=== PATIENT | female | born 1955 | race African-American/Black ===

== ENCOUNTER 2018-03-07 07:55 | Inpatient (IN) ==
[2018-03-07] MEDS ORDERED: MAGNESIUM SULF RIDER 4 GM in PREMIX 1 EACH IV PRN (08:35)
[2018-03-07] MEDS ORDERED: ONDANSETRON 4 MG/2 ML VIAL IV PRN (08:35)
[2018-03-07] MEDS ORDERED: ACETAMINOPHEN 325 MG TABLET PO PRN (08:35)
[2018-03-07] MEDS ORDERED: DOCUSATE SODIUM 100 MG CAPSULE PO PRN (08:35)
[2018-03-07] MEDS ORDERED: ZALEPLON 5 MG CAPSULE PO PRN (08:35)
[2018-03-07] MEDS ORDERED: MAGNESIUM SULF RIDER 2 GM in PREMIX 1 EACH IV PRN ×2 (08:35→09:27)
[2018-03-07] MEDS ORDERED: PHYTONADIONE 5 MG/5 ML ORAL.SYR PO STA (08:39)
[2018-03-07] MEDS ORDERED: ENOXAPARIN 40 MG/0.4 ML SYRINGE SUBCUT SCH (09:00)
[2018-03-07] MEDS ORDERED: SODIUM CHLORIDE 0.45% 1,000 ML IV SCH (09:00)
[2018-03-07] MEDS ORDERED: DIAZEPAM 5 MG TABLET PO ONE (09:27)
[2018-03-07] MEDS ORDERED: diphenhydrAMINE CAP 25 MG CAPSULE PO ONE (09:27)
[2018-03-07] MEDS ORDERED: ASPIRIN 325 MG TABLET PO ONE (09:27)
[2018-03-07] MEDS ORDERED: POTASSIUM CHLORIDE RIDER 10 MEQ in PREMIX 1 EACH IV PRN (09:27)
[2018-03-07 10:37] LABS: Basophils # 0.1 10*3/uL (0.0-0.2); Basophils % 0.5 % (0.0-0.8); Eosinophils # 0.1 10*3/uL (0.0-0.87); Eosinophils % 0.5 % (0.00-10.9); Hematocrit 32.1 VOL% (35.7-47.0); Hemoglobin 10.5 GM/DL (12.0-16.0); Immature Granulocytes % 0.6 %; Immature Granulocytes Absolute 0.11 #; Lymphocytes # 1.9 10*3/uL (1.4-4.0); Lymphocytes % 9.7 % (21.3-54.2); Mean Corpuscular HGB Conc 32.7 GM/DL (32-36); Mean Corpuscular Hemoglobin 30 PG (27-34); Mean Corpuscular Volume 92.2 FL (87-102); Mean Platelet Volume 10.6 FL (9.6-12.0); Monocytes # 1.2 10*3/uL (0.11-0.8); Monocytes % 5.8 % (1.7-12.7); Neutrophils # 16.3 10*3/uL (1.4-7.4); Neutrophils % 82.9 % (38.7-73.9); Platelet Count 331 T/CUMM (130-400); Red Blood Count 3.48 MC/CUMM (3.8-5.5); Red Cell Distribution Width 13.5 % (9.3-17.3); White Blood Count 19.7 T/CUMM (4-12)
[2018-03-07 10:48] LABS: INR 3.1
[2018-03-07 10:51] LABS: PT Patient Result 31.4 SECS
[2018-03-07 11:07] LABS: Albumin 3.2 G/DL (3.4-5.0); Bilirubin,Total 0.5 MG/DL (0.2-1.0); Calcium 9.6 MG/DL (8.5-10.1); Osmolality,Calculated 287.1 MOS/KG (273-304); Potassium 4.9 MMOL/L (3.5-5.1); Total Protein 7.7 G/DL (6.4-8.3)
[2018-03-07] MEDS ORDERED: CLOPIDOGREL 300 MG TABLET PO STA (14:12)
[2018-03-07] MEDS ORDERED: VANCOMYCIN 1,000 MG VIAL ONE (14:15)
[2018-03-07] MEDS ORDERED: CLOPIDOGREL 300 MG TABLET ONE (14:18)
[2018-03-07] MEDS ORDERED: VANCOMYCIN INJ 1,000 MG in SODIUM CHLORIDE 0.9% 250 ML IV ONE (14:30)
[2018-03-07 14:50] LABS: INR 2.7
[2018-03-07 14:55] LABS: PT Patient Result 27.6 SECS
[2018-03-07] MEDS ORDERED: traMADol 50 MG TABLET PO PRN (15:12)
[2018-03-07] MEDS ORDERED: PHYTONADIONE 5 MG/5 ML ORAL.SYR PO ONE (15:16)
[2018-03-07 15:33] LABS: Basophils # 0.1 10*3/uL (0.0-0.2); Basophils % 0.6 % (0.0-0.8); Eosinophils # 0.2 10*3/uL (0.0-0.87); Eosinophils % 0.8 % (0.00-10.9); Hematocrit 30.2 VOL% (35.7-47.0); Hemoglobin 10.1 GM/DL (12.0-16.0); Immature Granulocytes % 0.6 %; Immature Granulocytes Absolute 0.12 #; Lymphocytes # 2.7 10*3/uL (1.4-4.0); Lymphocytes % 14.1 % (21.3-54.2); Mean Corpuscular HGB Conc 33.4 GM/DL (32-36); Mean Corpuscular Hemoglobin 31 PG (27-34); Mean Corpuscular Volume 91.8 FL (87-102); Mean Platelet Volume 11.2 FL (9.6-12.0); Monocytes # 1.2 10*3/uL (0.11-0.8); Monocytes % 6.5 % (1.7-12.7); Neutrophils # 14.5 10*3/uL (1.4-7.4); Neutrophils % 77.4 % (38.7-73.9); Platelet Count 333 T/CUMM (130-400); Red Blood Count 3.29 MC/CUMM (3.8-5.5); Red Cell Distribution Width 13.5 % (9.3-17.3); White Blood Count 18.8 T/CUMM (4-12)
[2018-03-07] MEDS: SODIUM CHLORIDE 0.45% 1,000 ML IV SCH (16:00)
[2018-03-07 16:01] LABS: Apearance,Urine Slightly Hazy (Clear); Bacteria,Urine Occasional /HPF (Few); Bilirubin,Urine Negative (Negative); Blood, Urine Small mg/dL (Negative); Glucose,Urine (UA) 150 mg/dL (Negative); Ketones,Urine Negative (Negative); Mucus,Urine Occasional /LPF (Occasional); Nitrite,Urine Negative (Negative); Protein,Urine 100 MG/DL; RBC,Urine 10 /HPF (0-4); Squamous Epithelial Cell,Urine Occasional /HPF (0-10); Urine Color Yellow (Yellow); Urine Specific Gravity 1.013 (1.001-1.035); WBC,Urine 1 /HPF (0-6)
[2018-03-07] MEDS ORDERED: GLUCAGON 1 MG VIAL IM PRN (16:24)
[2018-03-07] MEDS ORDERED: DEXTROSE 50% 25 GM/50 ML VIAL IV PRN (16:24)
[2018-03-07] MEDS: PANTOPRAZOLE 40 MG TABLET PO SCH (16:25)
[2018-03-07] MEDS: CLINDAMYCIN INJ 300 MG in PREMIX 1 EACH IV SCH ×2 (16:27→21:21)
[2018-03-07] MEDS ORDERED: diphenhydrAMINE CAP 25 MG CAPSULE PO PRN (16:28)
[2018-03-07] MEDS: CARVEDILOL 3.125 MG TABLET PO SCH (16:32)
[2018-03-07] MEDS: ATORVASTATIN 80 MG TABLET PO SCH (16:32)
[2018-03-07] MEDS ORDERED: Exenatide [Byetta] 10 MCG SQ SCH (21:00)
[2018-03-07] MEDS: MORPHINE 4 MG/1 ML VIAL IV PRN (21:21)
[2018-03-08] MEDS: CLINDAMYCIN INJ 300 MG in PREMIX 1 EACH IV SCH ×4 (04:07→22:20)
[2018-03-08 06:05] LABS: Hyaline Casts,Urine 8 /LPF (0-3)
[2018-03-08] MEDS ORDERED: ASPIRIN 325 MG TABLET PO ONE (06:30)
[2018-03-08] MEDS ORDERED: diphenhydrAMINE CAP 25 MG CAPSULE PO ONE (06:30)
[2018-03-08] MEDS ORDERED: DIAZEPAM 5 MG TABLET PO ONE (06:30)
[2018-03-08 06:44] LABS: INR 1.2; PT Patient Result 12.7 SECS
[2018-03-08 06:45] LABS: Basophils # 0.1 10*3/uL (0.0-0.2); Basophils % 0.7 % (0.0-0.8); Eosinophils # 0.2 10*3/uL (0.0-0.87); Eosinophils % 1.3 % (0.00-10.9); Hematocrit 27.7 VOL% (35.7-47.0); Hemoglobin 9.1 GM/DL (12.0-16.0); Immature Granulocytes % 0.8 %; Immature Granulocytes Absolute 0.14 #; Lymphocytes # 2.6 10*3/uL (1.4-4.0); Lymphocytes % 15.3 % (21.3-54.2); Mean Corpuscular HGB Conc 32.9 GM/DL (32-36); Mean Corpuscular Hemoglobin 31 PG (27-34); Mean Platelet Volume 10.7 FL (9.6-12.0); Monocytes # 1.2 10*3/uL (0.11-0.8); Neutrophils # 12.5 10*3/uL (1.4-7.4); Neutrophils % 74.9 % (38.7-73.9); Platelet Count 336 T/CUMM (130-400); Red Blood Count 2.98 MC/CUMM (3.8-5.5); Red Cell Distribution Width 13.5 % (9.3-17.3); White Blood Count 16.7 T/CUMM (4-12)
[2018-03-08] MEDS ORDERED: fentaNYL 100 MCG/2 ML VIAL ONE (06:51)
[2018-03-08] MEDS ORDERED: MIDAZOLAM 2 MG/2 ML VIAL ONE (06:51)
[2018-03-08] MEDS ORDERED: LIDOCAINE 1% 20 ML VIAL ONE (06:52)
[2018-03-08] MEDS ORDERED: VERAPAMIL 5 MG/2 ML VIAL ONE (07:06)
[2018-03-08] MEDS ORDERED: NITROGLYCERIN DRIP 50 MG/250 ML BOTTLE IV ONE (07:06)
[2018-03-08] MEDS ORDERED: ENOXAPARIN 60 MG/0.6 ML SYRINGE ONE (07:11)
[2018-03-08 07:12] LABS: Albumin 2.5 G/DL (3.4-5.0); Bilirubin,Total 0.8 MG/DL (0.2-1.0); Calcium 9.2 MG/DL (8.5-10.1); Potassium 4.6 MMOL/L (3.5-5.1); Total Protein 7.3 G/DL (6.4-8.3)
[2018-03-08] MEDS ORDERED: HEPARIN 5,000 UNIT/1 ML VIAL ONE ×2 (07:16→08:22)
[2018-03-08 08:42] LABS: Osmolality,Calculated 287.1 MOS/KG (273-304); Potassium 4.7 MMOL/L (3.5-5.1)
[2018-03-08] MEDS ORDERED: fentaNYL 100 MCG/2 ML VIAL IV PRN (09:09)
[2018-03-08] MEDS: CARVEDILOL 3.125 MG TABLET PO SCH ×2 (15:57→16:21)
[2018-03-08] MEDS: CILOSTAZOL 50 MG TABLET PO SCH ×2 (16:21→22:16)
[2018-03-08] MEDS: LOSARTAN 50 MG TABLET PO SCH (16:21)
[2018-03-08] MEDS: ASPIRIN EC 81 MG TABLET PO SCH (16:23)
[2018-03-08] MEDS: CLOPIDOGREL 75 MG TABLET PO SCH (16:23)
[2018-03-08] MEDS: ATORVASTATIN 80 MG TABLET PO SCH (16:27)
[2018-03-08] MEDS: amLODIPine 5 MG TABLET PO SCH (16:27)
[2018-03-08] MEDS: POTASSIUM CHLORIDE 10 MEQ TABLET PO SCH (16:27)
[2018-03-08] MEDS: glipiZIDE 10 MG TABLET PO SCH (16:27)
[2018-03-08] MEDS: MAGNESIUM OXIDE 400 MG TABLET PO SCH (16:27)
[2018-03-08] MEDS: PANTOPRAZOLE 40 MG TABLET PO SCH ×2 (16:28)
[2018-03-08] MEDS: VANCOMYCIN INJ 1,250 MG in SODIUM CHLORIDE 0.9% 250 ML IV SCH (16:58)
[2018-03-09] MEDS: SODIUM CHLORIDE 0.45% 1,000 ML IV SCH ×2 (03:05→04:55)
[2018-03-09] MEDS: CLINDAMYCIN INJ 300 MG in PREMIX 1 EACH IV SCH ×4 (03:27→21:44)
[2018-03-09 05:36] LABS: Basophils # 0.1 10*3/uL (0.0-0.2); Basophils % 0.5 % (0.0-0.8); Eosinophils # 0.3 10*3/uL (0.0-0.87); Hematocrit 26.7 VOL% (35.7-47.0); Hemoglobin 8.5 GM/DL (12.0-16.0); Immature Granulocytes % 0.7 %; Immature Granulocytes Absolute 0.11 #; Lymphocytes # 2.7 10*3/uL (1.4-4.0); Lymphocytes % 16.6 % (21.3-54.2); Mean Corpuscular HGB Conc 31.8 GM/DL (32-36); Mean Corpuscular Hemoglobin 30 PG (27-34); Mean Platelet Volume 10.9 FL (9.6-12.0); Monocytes # 1.1 10*3/uL (0.11-0.8); Monocytes % 6.9 % (1.7-12.7); Neutrophils # 11.7 10*3/uL (1.4-7.4); Neutrophils % 73.3 % (38.7-73.9); Platelet Count 307 T/CUMM (130-400); Red Blood Count 2.84 MC/CUMM (3.8-5.5); Red Cell Distribution Width 13.4 % (9.3-17.3)
[2018-03-09 06:05] LABS: Calcium 8.9 MG/DL (8.5-10.1); Osmolality,Calculated 283.1 MOS/KG (273-304); Potassium 4.2 MMOL/L (3.5-5.1)
[2018-03-09] MEDS: MORPHINE 4 MG/1 ML VIAL IV PRN ×3 (07:14→21:39)
[2018-03-09] MEDS ORDERED: CLINDAMYCIN INJ 900 MG in PREMIX 1 EACH IV ONE (07:59)
[2018-03-09] MEDS: CARVEDILOL 3.125 MG TABLET PO SCH ×2 (10:16→18:29)
[2018-03-09] MEDS: amLODIPine 5 MG TABLET PO SCH (10:16)
[2018-03-09] MEDS: PANTOPRAZOLE 40 MG TABLET PO SCH ×2 (10:17→18:11)
[2018-03-09] MEDS ORDERED: PROPOFOL 200 MG/20 ML VIAL IV ONE (15:56)
[2018-03-09] MEDS ORDERED: fentaNYL 100 MCG/2 ML VIAL ONE (15:56)
[2018-03-09] MEDS ORDERED: SEVOFLURANE 1 UNIT/15 MINUTE INH ONE (15:56)
[2018-03-09] MEDS ORDERED: MIDAZOLAM 2 MG/2 ML VIAL ONE (15:56)
[2018-03-09] MEDS ORDERED: ONDANSETRON 4 MG/2 ML VIAL ONE (15:56)
[2018-03-09] MEDS ORDERED: LIDOCAINE 1% 5 ML VIAL ONE (15:56)
[2018-03-09] MEDS ORDERED: PHENYLEPHRINE 1 MG/10 ML SYRINGE IV ONE (15:57)
[2018-03-09] MEDS ORDERED: DEXTROSE 50% 25 GM/50 ML VIAL IV PRN (17:32)
[2018-03-09] MEDS ORDERED: GLUCAGON 1 MG VIAL IM PRN (17:32)
[2018-03-09] MEDS: LOSARTAN 50 MG TABLET PO SCH (18:09)
[2018-03-09] MEDS: ATORVASTATIN 80 MG TABLET PO SCH (18:09)
[2018-03-09] MEDS: POTASSIUM CHLORIDE 10 MEQ TABLET PO SCH (18:09)
[2018-03-09] MEDS: ASPIRIN EC 81 MG TABLET PO SCH (18:09)
[2018-03-09] MEDS: MAGNESIUM OXIDE 400 MG TABLET PO SCH (18:11)
[2018-03-09] MEDS: CILOSTAZOL 50 MG TABLET PO SCH ×2 (18:11→21:06)
[2018-03-09] MEDS: CLOPIDOGREL 75 MG TABLET PO SCH (18:11)
[2018-03-09] MEDS: glipiZIDE 10 MG TABLET PO SCH (18:28)
[2018-03-09] MEDS: INSULIN REGULAR 100 UNIT/ML SUBCUT SCH ×2 (18:32→21:06)
[2018-03-09] MEDS: VANCOMYCIN INJ 1,250 MG in SODIUM CHLORIDE 0.9% 250 ML IV SCH (18:35)
[2018-03-09] MEDS: GABAPENTIN 100 MG CAPSULE PO SCH (21:06)
[2018-03-10] MEDS: MORPHINE 4 MG/1 ML VIAL IV PRN ×2 (02:12→10:02)
[2018-03-10] MEDS: CLINDAMYCIN INJ 300 MG in PREMIX 1 EACH IV SCH ×3 (05:45→21:19)
[2018-03-10 06:46] LABS: Basophils # 0.1 10*3/uL (0.0-0.2); Basophils % 0.3 % (0.0-0.8); Eosinophils # 0.5 10*3/uL (0.0-0.87); Eosinophils % 2.7 % (0.00-10.9); Hematocrit 26.9 VOL% (35.7-47.0); Hemoglobin 9.1 GM/DL (12.0-16.0); Immature Granulocytes % 0.6 %; Immature Granulocytes Absolute 0.11 #; Lymphocytes # 2.5 10*3/uL (1.4-4.0); Lymphocytes % 14.5 % (21.3-54.2); Mean Corpuscular HGB Conc 33.8 GM/DL (32-36); Mean Corpuscular Hemoglobin 31 PG (27-34); Mean Corpuscular Volume 91.8 FL (87-102); Mean Platelet Volume 10.6 FL (9.6-12.0); Monocytes # 1.4 10*3/uL (0.11-0.8); Monocytes % 7.9 % (1.7-12.7); Neutrophils # 12.9 10*3/uL (1.4-7.4); Platelet Count 348 T/CUMM (130-400); Red Blood Count 2.93 MC/CUMM (3.8-5.5); Red Cell Distribution Width 13.2 % (9.3-17.3); White Blood Count 17.5 T/CUMM (4-12)
[2018-03-10 07:10] LABS: Calcium 9.3 MG/DL (8.5-10.1); Osmolality,Calculated 275.5 MOS/KG (273-304); Potassium 4.3 MMOL/L (3.5-5.1)
[2018-03-10] MEDS: SODIUM CHLORIDE 0.45% 1,000 ML IV SCH ×2 (07:25→07:27)
[2018-03-10] MEDS: MAGNESIUM OXIDE 400 MG TABLET PO SCH (10:00)
[2018-03-10] MEDS: amLODIPine 5 MG TABLET PO SCH (10:00)
[2018-03-10] MEDS: CILOSTAZOL 50 MG TABLET PO SCH ×2 (10:00→21:54)
[2018-03-10] MEDS: LOSARTAN 50 MG TABLET PO SCH (10:01)
[2018-03-10] MEDS: CARVEDILOL 3.125 MG TABLET PO SCH (10:01)
[2018-03-10] MEDS: CLOPIDOGREL 75 MG TABLET PO SCH (10:01)
[2018-03-10] MEDS: PANTOPRAZOLE 40 MG TABLET PO SCH ×2 (10:01)
[2018-03-10] MEDS: ASPIRIN EC 81 MG TABLET PO SCH (10:01)
[2018-03-10] MEDS: GABAPENTIN 100 MG CAPSULE PO SCH ×3 (10:01→21:54)
[2018-03-10] MEDS: glipiZIDE 10 MG TABLET PO SCH (10:01)
[2018-03-10] MEDS: ATORVASTATIN 80 MG TABLET PO SCH (10:01)
[2018-03-10] MEDS: POTASSIUM CHLORIDE 10 MEQ TABLET PO SCH (10:01)
[2018-03-10] MEDS: INSULIN REGULAR 100 UNIT/ML SUBCUT SCH ×4 (10:02→21:19)
[2018-03-10] MEDS ORDERED: CARVEDILOL 3.125 MG TABLET PO ONE (10:21)
[2018-03-10] MEDS ORDERED: MAGNESIUM SULF RIDER 2 GM in PREMIX 1 EACH IV PRN (10:22)
[2018-03-10] MEDS ORDERED: MAGNESIUM SULF RIDER 4 GM in PREMIX 1 EACH IV PRN (10:22)
[2018-03-10] MEDS ORDERED: CARVEDILOL 6.25 MG TABLET PO SCH (10:30)
[2018-03-10] MEDS ORDERED: MORPHINE 4 MG/1 ML VIAL IV PRN (12:05)
[2018-03-10] MEDS: VANCOMYCIN INJ 1,250 MG in SODIUM CHLORIDE 0.9% 250 ML IV SCH (17:45)
[2018-03-10] MEDS: CARVEDILOL 6.25 MG TABLET PO SCH (21:54)
[2018-03-11] MEDS: SODIUM CHLORIDE 0.45% 1,000 ML IV SCH ×2 (00:28→23:05)
[2018-03-11 04:38] LABS: Basophils % 0.3 % (0.0-0.8); Eosinophils # 0.4 10*3/uL (0.0-0.87); Eosinophils % 2.3 % (0.00-10.9); Hematocrit 23.7 VOL% (35.7-47.0); Hemoglobin 7.9 GM/DL (12.0-16.0); Immature Granulocytes % 0.8 %; Immature Granulocytes Absolute 0.13 #; Lymphocytes # 1.7 10*3/uL (1.4-4.0); Mean Corpuscular HGB Conc 33.3 GM/DL (32-36); Mean Corpuscular Hemoglobin 31 PG (27-34); Mean Corpuscular Volume 92.2 FL (87-102); Mean Platelet Volume 10.3 FL (9.6-12.0); Monocytes # 1.5 10*3/uL (0.11-0.8); Monocytes % 9.7 % (1.7-12.7); Neutrophils # 11.9 10*3/uL (1.4-7.4); Neutrophils % 75.9 % (38.7-73.9); Platelet Count 320 T/CUMM (130-400); Red Blood Count 2.57 MC/CUMM (3.8-5.5); Red Cell Distribution Width 13.2 % (9.3-17.3); White Blood Count 15.7 T/CUMM (4-12)
[2018-03-11 04:51] LABS: INR 1.1; PT Patient Result 11.4 SECS
[2018-03-11 05:02] LABS: Calcium 8.6 MG/DL (8.5-10.1); Osmolality,Calculated 274.8 MOS/KG (273-304); Potassium 4.2 MMOL/L (3.5-5.1)
[2018-03-11] MEDS ORDERED: MAGNESIUM HYDROXIDE SUSP 30 ML UDCUP PO ONE (09:16)
[2018-03-11] MEDS: INSULIN REGULAR 100 UNIT/ML SUBCUT SCH ×4 (10:00→20:59)
[2018-03-11] MEDS: ATORVASTATIN 80 MG TABLET PO SCH (10:01)
[2018-03-11] MEDS: GABAPENTIN 100 MG CAPSULE PO SCH ×3 (10:01→20:59)
[2018-03-11] MEDS: POTASSIUM CHLORIDE 10 MEQ TABLET PO SCH (10:01)
[2018-03-11] MEDS: glipiZIDE 10 MG TABLET PO SCH (10:01)
[2018-03-11] MEDS: PANTOPRAZOLE 40 MG TABLET PO SCH (10:02)
[2018-03-11] MEDS: LOSARTAN 50 MG TABLET PO SCH (10:02)
[2018-03-11] MEDS: MAGNESIUM OXIDE 400 MG TABLET PO SCH (10:02)
[2018-03-11] MEDS: amLODIPine 5 MG TABLET PO SCH (10:02)
[2018-03-11] MEDS: CARVEDILOL 6.25 MG TABLET PO SCH ×2 (10:02→20:59)
[2018-03-11] MEDS: POLYETHYLENE GLYCOL POWDER 17 GM PACK PO SCH ×2 (11:52→17:35)
[2018-03-12 03:58] LABS: Basophils % 0.2 % (0.0-0.8); Eosinophils # 0.3 10*3/uL (0.0-0.87); Eosinophils % 1.7 % (0.00-10.9); Hematocrit 24.6 VOL% (35.7-47.0); Immature Granulocytes % 0.8 %; Immature Granulocytes Absolute 0.14 #; Lymphocytes # 1.2 10*3/uL (1.4-4.0); Lymphocytes % 6.8 % (21.3-54.2); Mean Corpuscular HGB Conc 32.5 GM/DL (32-36); Mean Corpuscular Hemoglobin 31 PG (27-34); Mean Corpuscular Volume 93.9 FL (87-102); Mean Platelet Volume 10.1 FL (9.6-12.0); Monocytes # 1.4 10*3/uL (0.11-0.8); Monocytes % 7.8 % (1.7-12.7); Neutrophils # 14.8 10*3/uL (1.4-7.4); Neutrophils % 82.7 % (38.7-73.9); Platelet Count 303 T/CUMM (130-400); Red Blood Count 2.62 MC/CUMM (3.8-5.5); Red Cell Distribution Width 13.2 % (9.3-17.3); White Blood Count 17.9 T/CUMM (4-12)
[2018-03-12] MEDS: PANTOPRAZOLE 40 MG TABLET PO SCH ×2 (05:07→09:15)
[2018-03-12] MEDS: MAGNESIUM HYDROXIDE SUSP 30 ML UDCUP PO PRN ×2 (05:18→15:40)
[2018-03-12] MEDS: INSULIN REGULAR 100 UNIT/ML SUBCUT SCH ×4 (09:14→21:33)
[2018-03-12] MEDS: glipiZIDE 10 MG TABLET PO SCH (09:15)
[2018-03-12] MEDS: LOSARTAN 50 MG TABLET PO SCH (09:15)
[2018-03-12] MEDS: MAGNESIUM OXIDE 400 MG TABLET PO SCH (09:15)
[2018-03-12] MEDS: GABAPENTIN 100 MG CAPSULE PO SCH ×3 (09:15→21:33)
[2018-03-12] MEDS: POLYETHYLENE GLYCOL POWDER 17 GM PACK PO SCH (09:15)
[2018-03-12] MEDS: ATORVASTATIN 80 MG TABLET PO SCH (09:15)
[2018-03-12] MEDS: POTASSIUM CHLORIDE 10 MEQ TABLET PO SCH (09:16)
[2018-03-12] MEDS: amLODIPine 5 MG TABLET PO SCH (09:16)
[2018-03-12] MEDS: CARVEDILOL 6.25 MG TABLET PO SCH ×2 (09:46→21:33)
[2018-03-13 04:12] LABS: Basophils # 0.1 10*3/uL (0.0-0.2); Basophils % 0.3 % (0.0-0.8); Eosinophils # 0.2 10*3/uL (0.0-0.87); Hematocrit 22.7 VOL% (35.7-47.0); Hemoglobin 7.3 GM/DL (12.0-16.0); Immature Granulocytes % 0.8 %; Immature Granulocytes Absolute 0.15 #; Lymphocytes # 2.3 10*3/uL (1.4-4.0); Lymphocytes % 12.8 % (21.3-54.2); Mean Corpuscular HGB Conc 32.2 GM/DL (32-36); Mean Corpuscular Hemoglobin 30 PG (27-34); Mean Corpuscular Volume 93.8 FL (87-102); Monocytes # 1.8 10*3/uL (0.11-0.8); Monocytes % 9.9 % (1.7-12.7); Neutrophils # 13.7 10*3/uL (1.4-7.4); Neutrophils % 75.2 % (38.7-73.9); Platelet Count 309 T/CUMM (130-400); Red Blood Count 2.42 MC/CUMM (3.8-5.5); Red Cell Distribution Width 13.2 % (9.3-17.3); White Blood Count 18.3 T/CUMM (4-12)
[2018-03-13] MEDS: MAGNESIUM HYDROXIDE SUSP 30 ML UDCUP PO PRN (05:38)
[2018-03-13] MEDS: INSULIN REGULAR 100 UNIT/ML SUBCUT SCH ×4 (07:59→20:57)
[2018-03-13] MEDS: POTASSIUM CHLORIDE 10 MEQ TABLET PO SCH (10:15)
[2018-03-13] MEDS: PANTOPRAZOLE 40 MG TABLET PO SCH (10:15)
[2018-03-13] MEDS: LOSARTAN 50 MG TABLET PO SCH (10:16)
[2018-03-13] MEDS: CLINDAMYCIN 300 MG CAPSULE PO SCH ×2 (10:16→21:00)
[2018-03-13] MEDS: CARVEDILOL 6.25 MG TABLET PO SCH ×2 (10:16→20:56)
[2018-03-13] MEDS: SULFAMETHOX/TRIMETHOPRIM 800-160 MG TABLET PO SCH ×2 (10:16→20:56)
[2018-03-13] MEDS: MAGNESIUM OXIDE 400 MG TABLET PO SCH (10:16)
[2018-03-13] MEDS: FERROUS SULFATE 325 MG TABLET PO SCH ×2 (10:16→20:56)
[2018-03-13] MEDS: amLODIPine 5 MG TABLET PO SCH (10:16)
[2018-03-13] MEDS: GABAPENTIN 100 MG CAPSULE PO SCH ×3 (10:16→20:56)
[2018-03-13] MEDS: ATORVASTATIN 80 MG TABLET PO SCH (10:16)
[2018-03-13] MEDS: POLYETHYLENE GLYCOL POWDER 17 GM PACK PO SCH (10:18)
[2018-03-13] MEDS: glipiZIDE 10 MG TABLET PO SCH (10:19)
[2018-03-14] MEDS: CLINDAMYCIN 300 MG CAPSULE PO SCH ×2 (03:14→09:01)
[2018-03-14 05:16] LABS: Basophils # 0.1 10*3/uL (0.0-0.2); Basophils % 0.3 % (0.0-0.8); Eosinophils # 0.3 10*3/uL (0.0-0.87); Eosinophils % 1.7 % (0.00-10.9); Hematocrit 22.5 VOL% (35.7-47.0); Hemoglobin 7.2 GM/DL (12.0-16.0); Immature Granulocytes Absolute 0.16 #; Lymphocytes # 1.9 10*3/uL (1.4-4.0); Lymphocytes % 11.5 % (21.3-54.2); Mean Corpuscular Hemoglobin 30 PG (27-34); Mean Corpuscular Volume 94.5 FL (87-102); Mean Platelet Volume 9.9 FL (9.6-12.0); Monocytes # 1.6 10*3/uL (0.11-0.8); Monocytes % 9.6 % (1.7-12.7); Neutrophils # 12.8 10*3/uL (1.4-7.4); Neutrophils % 75.9 % (38.7-73.9); Platelet Count 307 T/CUMM (130-400); Red Blood Count 2.38 MC/CUMM (3.8-5.5); Red Cell Distribution Width 13.7 % (9.3-17.3); White Blood Count 16.8 T/CUMM (4-12)
[2018-03-14 05:39] LABS: Calcium 8.5 MG/DL (8.5-10.1); Potassium 4.8 MMOL/L (3.5-5.1)
[2018-03-14] MEDS ORDERED: ASPIRIN CHEW 81 MG TABLET PO SCH (09:00)
[2018-03-14] MEDS: PANTOPRAZOLE 40 MG TABLET PO SCH (09:01)
[2018-03-14] MEDS: POTASSIUM CHLORIDE 10 MEQ TABLET PO SCH (09:01)
[2018-03-14] MEDS: glipiZIDE 10 MG TABLET PO SCH (09:01)
[2018-03-14] MEDS: MAGNESIUM OXIDE 400 MG TABLET PO SCH (09:01)
[2018-03-14] MEDS: LOSARTAN 50 MG TABLET PO SCH (09:01)
[2018-03-14] MEDS: CARVEDILOL 6.25 MG TABLET PO SCH (09:01)
[2018-03-14] MEDS: SULFAMETHOX/TRIMETHOPRIM 800-160 MG TABLET PO SCH (09:01)
[2018-03-14] MEDS: FERROUS SULFATE 325 MG TABLET PO SCH (09:01)
[2018-03-14] MEDS: ATORVASTATIN 80 MG TABLET PO SCH (09:01)
[2018-03-14] MEDS: amLODIPine 5 MG TABLET PO SCH (09:01)
[2018-03-14] MEDS: INSULIN REGULAR 100 UNIT/ML SUBCUT SCH ×2 (09:34→12:29)
[2018-03-14 11:05] VITALS: BP 116/53
[2018-03-14] MEDS: POLYETHYLENE GLYCOL POWDER 17 GM PACK PO SCH (11:57)
[2018-03-14] MEDS: GABAPENTIN 100 MG CAPSULE PO SCH ×2 (11:57→16:09)
== END 2018-03-14 16:05 | DRG 240 ==
LOC: N.CL 07:55 → N.3E 15:06
PROVIDERS: ADMIT Internal Medicine Cardiovascular Disease; ATTEND Internal Medicine Cardiovascular Disease

== ENCOUNTER 2018-03-21 10:25 | Inpatient (IN) ==
[2018-03-21] MEDS ORDERED: CLINDAMYCIN INJ 600 MG in PREMIX 1 EACH IV STA (11:21)
[2018-03-21] MEDS ORDERED: CLINDAMYCIN INJ 900 MG in PREMIX 1 EACH IV ONE (11:30)
[2018-03-21 12:00] LABS: Basophils # 0.1 10*3/uL (0.0-0.2); Basophils % 0.6 % (0.0-0.8); Eosinophils # 0.3 10*3/uL (0.0-0.87); Eosinophils % 1.4 % (0.00-10.9); Hematocrit 28.8 VOL% (35.7-47.0); Hemoglobin 9.3 GM/DL (12.0-16.0); Immature Granulocytes % 1.1 %; Immature Granulocytes Absolute 0.22 #; Lymphocytes # 2.1 10*3/uL (1.4-4.0); Lymphocytes % 10.6 % (21.3-54.2); Mean Corpuscular HGB Conc 32.3 GM/DL (32-36); Mean Corpuscular Hemoglobin 30 PG (27-34); Mean Corpuscular Volume 92.9 FL (87-102); Mean Platelet Volume 9.5 FL (9.6-12.0); Monocytes # 1.6 10*3/uL (0.11-0.8); Monocytes % 8.1 % (1.7-12.7); Neutrophils # 15.6 10*3/uL (1.4-7.4); Neutrophils % 78.2 % (38.7-73.9); Platelet Count 481 T/CUMM (130-400); Red Cell Distribution Width 14.8 % (9.3-17.3)
[2018-03-21] MEDS ORDERED: METOCLOPRAMIDE 10 MG/2 ML VIAL IV STA (12:02)
[2018-03-21] MEDS ORDERED: FAMOTIDINE 20 MG/2 ML VIAL IV STA (12:03)
[2018-03-21 12:36] LABS: Albumin 2.4 G/DL (3.4-5.0); Bilirubin,Total 0.4 MG/DL (0.2-1.0); Calcium 9.3 MG/DL (8.5-10.1); Osmolality,Calculated 278.1 MOS/KG (273-304); Total Protein 8.1 G/DL (6.4-8.3)
[2018-03-21] MEDS ORDERED: INSULIN REGULAR 100 UNIT/ML IV ONE ×2 (13:30→20:06)
[2018-03-21] MEDS ORDERED: SODIUM BICARBONATE 50 MEQ/50 ML VIAL IV STA (13:30)
[2018-03-21] MEDS ORDERED: DEXTROSE 50% 25 GM/50 ML VIAL IV STA (13:31)
[2018-03-21] MEDS ORDERED: SODIUM BICARBONATE 50 MEQ/50 ML SYRINGE IV ONE ×2 (14:07→19:58)
[2018-03-21] MEDS ORDERED: DEXTROSE 50% 25 GM/50 ML SYRINGE IV ONE (14:07)
[2018-03-21] MEDS ORDERED: CALCIUM GLUCONATE 2,000 MG in SODIUM CHLORIDE 0.9% 100 ML IV ONE (16:14)
[2018-03-21] MEDS ORDERED: SODIUM CHLORIDE 0.9% 1,000 ML IV ONE (16:14)
[2018-03-21] MEDS ORDERED: ONDANSETRON 4 MG/2 ML VIAL IV PRN (16:14)
[2018-03-21] MEDS ORDERED: PANTOPRAZOLE 40 MG TABLET PO SCH (16:14)
[2018-03-21] MEDS: ENOXAPARIN 40 MG/0.4 ML SYRINGE SUBCUT SCH (19:01)
[2018-03-21] MEDS: ASPIRIN EC 81 MG TABLET PO SCH (19:02)
[2018-03-21] MEDS: GABAPENTIN 100 MG CAPSULE PO SCH ×2 (19:02→20:15)
[2018-03-21] MEDS: ATORVASTATIN 80 MG TABLET PO SCH (19:02)
[2018-03-21] MEDS ORDERED: CALCIUM CHLORIDE 1,000 MG in SODIUM CHLORIDE 0.9% 100 ML IV ONE (19:13)
[2018-03-21] MEDS ORDERED: DEXTROSE 50% 25 GM/50 ML VIAL IV PRN (19:43)
[2018-03-21] MEDS ORDERED: GLUCAGON 1 MG VIAL IM PRN (19:43)
[2018-03-21] MEDS ORDERED: SODIUM POLYSTYRENE SULFATE 15 GM/60 ML BOTTLE PO ONE (19:58)
[2018-03-21] MEDS ORDERED: DEXTROSE 50% 25 GM/50 ML VIAL IV ONE (20:06)
[2018-03-21] MEDS: CARVEDILOL 6.25 MG TABLET PO SCH (20:15)
[2018-03-21] MEDS: FERROUS SULFATE 325 MG TABLET PO SCH (20:15)
[2018-03-21] MEDS ORDERED: EXENATIDE 10 MCG SQ SCH (21:00)
[2018-03-21] MEDS: INSULIN REGULAR 100 UNIT/ML SUBCUT SCH (21:09)
[2018-03-21] MEDS: VANCOMYCIN INJ 1,250 MG in SODIUM CHLORIDE 0.9% 500 ML IV SCH (21:45)
[2018-03-21] MEDS ORDERED: SODIUM POLYSTYRENE SULFATE 15 GM/60 ML BOTTLE PO SCH (22:00)
[2018-03-21] MEDS ORDERED: SUGAMMADEX 200 MG/2 ML VIAL IV ONE (23:28)
[2018-03-21] MEDS ORDERED: SEVOFLURANE 1 UNIT/15 MINUTE INH ONE (23:50)
[2018-03-21] MEDS ORDERED: fentaNYL 100 MCG/2 ML VIAL ONE (23:50)
[2018-03-21] MEDS ORDERED: PHENYLEPHRINE 1 MG/10 ML SYRINGE IV ONE (23:50)
[2018-03-21] MEDS ORDERED: MIDAZOLAM 2 MG/2 ML VIAL ONE (23:50)
[2018-03-21] MEDS ORDERED: ETOMIDATE 40 MG/20 ML VIAL IV ONE (23:50)
[2018-03-21] MEDS ORDERED: ROCURONIUM 100 MG/10 ML VIAL IV ONE (23:51)
[2018-03-22] MEDS: PIPERACILLIN/TAZOBACTAM 3,375 MG in SODIUM CHLORIDE 0.9% 100 ML IV SCH ×3 (02:15→17:31)
[2018-03-22] MEDS: ENOXAPARIN 40 MG/0.4 ML SYRINGE SUBCUT SCH (06:33)
[2018-03-22 06:56] LABS: Basophils # 0.1 10*3/uL (0.0-0.2); Basophils % 0.7 % (0.0-0.8); Eosinophils # 0.3 10*3/uL (0.0-0.87); Eosinophils % 1.5 % (0.00-10.9); Hematocrit 26.9 VOL% (35.7-47.0); Hemoglobin 8.5 GM/DL (12.0-16.0); Immature Granulocytes % 0.7 %; Immature Granulocytes Absolute 0.13 #; Lymphocytes # 2.3 10*3/uL (1.4-4.0); Lymphocytes % 12.8 % (21.3-54.2); Mean Corpuscular HGB Conc 31.6 GM/DL (32-36); Mean Corpuscular Hemoglobin 30 PG (27-34); Mean Corpuscular Volume 93.7 FL (87-102); Mean Platelet Volume 9.5 FL (9.6-12.0); Monocytes # 1.8 10*3/uL (0.11-0.8); Monocytes % 10.1 % (1.7-12.7); Neutrophils # 13.2 10*3/uL (1.4-7.4); Neutrophils % 74.2 % (38.7-73.9); Platelet Count 457 T/CUMM (130-400); Red Blood Count 2.87 MC/CUMM (3.8-5.5); Red Cell Distribution Width 14.6 % (9.3-17.3); White Blood Count 17.8 T/CUMM (4-12)
[2018-03-22 07:13] LABS: Calcium 9.2 MG/DL (8.5-10.1); Osmolality,Calculated 282.4 MOS/KG (273-304); Potassium 4.5 MMOL/L (3.5-5.1)
[2018-03-22] MEDS: CARVEDILOL 6.25 MG TABLET PO SCH ×2 (08:40→17:30)
[2018-03-22] MEDS: PANTOPRAZOLE 40 MG TABLET PO SCH (08:40)
[2018-03-22] MEDS ORDERED: PANTOPRAZOLE 40 MG VIAL IV ONE (08:50)
[2018-03-22] MEDS ORDERED: POTASSIUM CHLORIDE 10 MEQ TABLET PO SCH (09:00)
[2018-03-22] MEDS: INSULIN REGULAR 100 UNIT/ML SUBCUT SCH ×3 (09:28→17:31)
[2018-03-22] MEDS: ATORVASTATIN 80 MG TABLET PO SCH (10:05)
[2018-03-22] MEDS: MAGNESIUM OXIDE 400 MG TABLET PO SCH (10:05)
[2018-03-22] MEDS: FERROUS SULFATE 325 MG TABLET PO SCH ×2 (10:05→20:13)
[2018-03-22] MEDS: ASPIRIN EC 81 MG TABLET PO SCH (10:05)
[2018-03-22] MEDS: GABAPENTIN 100 MG CAPSULE PO SCH ×3 (10:06→20:13)
[2018-03-22] MEDS: amLODIPine 5 MG TABLET PO SCH (10:06)
[2018-03-22] MEDS: HYDROmorphone 2 MG/1 ML VIAL IV PRN ×3 (10:25→10:40)
[2018-03-22] MEDS ORDERED: HYDROmorphone 2 MG/1 ML VIAL ONE (10:26)
[2018-03-22] MEDS ORDERED: ONDANSETRON 4 MG/2 ML VIAL ONE ×2 (10:26→10:32)
[2018-03-22] MEDS ORDERED: SEVOFLURANE 1 UNIT/15 MINUTE INH ONE (10:31)
[2018-03-22] MEDS ORDERED: fentaNYL 100 MCG/2 ML VIAL ONE (10:31)
[2018-03-22] MEDS ORDERED: PROPOFOL 200 MG/20 ML VIAL IV ONE (10:31)
[2018-03-22] MEDS ORDERED: GLYCOPYRROLATE 0.4 MG/2 ML VIAL ONE (10:32)
[2018-03-22] MEDS ORDERED: MIDAZOLAM 2 MG/2 ML VIAL ONE (10:32)
[2018-03-22] MEDS ORDERED: PHENYLEPHRINE 10 MG/1 ML VIAL IV ONE (10:32)
[2018-03-22] MEDS ORDERED: LACTATED RINGERS 1,000 ML IV ONE (10:32)
[2018-03-22] MEDS ORDERED: MEPERIDINE 25 MG/1 ML VIAL IV PRN (10:35)
[2018-03-22] MEDS ORDERED: ONDANSETRON 4 MG/2 ML VIAL IV PRN (10:35)
[2018-03-22] MEDS: MORPHINE 4 MG/1 ML VIAL IV PRN ×2 (12:12→15:58)
[2018-03-22] MEDS: VANCOMYCIN INJ 1,250 MG in SODIUM CHLORIDE 0.9% 500 ML IV SCH (20:11)
[2018-03-23] MEDS: INSULIN REGULAR 100 UNIT/ML SUBCUT SCH ×5 (01:01→21:40)
[2018-03-23] MEDS: PIPERACILLIN/TAZOBACTAM 3,375 MG in SODIUM CHLORIDE 0.9% 100 ML IV SCH ×3 (02:23→18:25)
[2018-03-23 05:18] LABS: Basophils # 0.1 10*3/uL (0.0-0.2); Basophils % 0.4 % (0.0-0.8); Eosinophils # 0.1 10*3/uL (0.0-0.87); Eosinophils % 0.2 % (0.00-10.9); Hematocrit 22.7 VOL% (35.7-47.0); Immature Granulocytes Absolute 0.21 #; Lymphocytes # 1.7 10*3/uL (1.4-4.0); Lymphocytes % 8.1 % (21.3-54.2); Mean Corpuscular HGB Conc 30.8 GM/DL (32-36); Mean Corpuscular Hemoglobin 30 PG (27-34); Mean Corpuscular Volume 96.2 FL (87-102); Monocytes # 1.7 10*3/uL (0.11-0.8); Monocytes % 8.5 % (1.7-12.7); Neutrophils # 16.7 10*3/uL (1.4-7.4); Neutrophils % 81.8 % (38.7-73.9); Platelet Count 419 T/CUMM (130-400); Red Blood Count 2.36 MC/CUMM (3.8-5.5); Red Cell Distribution Width 14.8 % (9.3-17.3); White Blood Count 20.4 T/CUMM (4-12)
[2018-03-23 05:43] LABS: Hypochromasia Slight; Macrocytosis Slight; Platelet Estimate Increased
[2018-03-23 05:45] LABS: Calcium 8.7 MG/DL (8.5-10.1); Osmolality,Calculated 278.7 MOS/KG (273-304); Potassium 4.7 MMOL/L (3.5-5.1)
[2018-03-23] MEDS: ENOXAPARIN 40 MG/0.4 ML SYRINGE SUBCUT SCH (06:55)
[2018-03-23] MEDS: PANTOPRAZOLE 40 MG TABLET PO SCH (09:06)
[2018-03-23] MEDS: CARVEDILOL 6.25 MG TABLET PO SCH ×2 (09:06→16:30)
[2018-03-23] MEDS: ASPIRIN EC 81 MG TABLET PO SCH (09:06)
[2018-03-23] MEDS: ATORVASTATIN 80 MG TABLET PO SCH (09:06)
[2018-03-23] MEDS: FERROUS SULFATE 325 MG TABLET PO SCH ×2 (09:06→21:34)
[2018-03-23] MEDS: MORPHINE 4 MG/1 ML VIAL IV PRN ×2 (09:07→13:09)
[2018-03-23] MEDS: MAGNESIUM OXIDE 400 MG TABLET PO SCH (09:07)
[2018-03-23] MEDS: amLODIPine 5 MG TABLET PO SCH (09:07)
[2018-03-23] MEDS: GABAPENTIN 100 MG CAPSULE PO SCH ×3 (09:07→21:34)
[2018-03-23] MEDS: VANCOMYCIN INJ 1,250 MG in SODIUM CHLORIDE 0.9% 250 ML IV SCH ×2 (12:30→23:43)
[2018-03-23] MEDS: ACETAMINOPHEN 325 MG TABLET PO PRN (21:34)
[2018-03-24] MEDS: PIPERACILLIN/TAZOBACTAM 3,375 MG in SODIUM CHLORIDE 0.9% 100 ML IV SCH ×3 (02:29→17:45)
[2018-03-24] MEDS: ENOXAPARIN 40 MG/0.4 ML SYRINGE SUBCUT SCH (06:14)
[2018-03-24 06:54] LABS: Basophils # 0.1 10*3/uL (0.0-0.2); Basophils % 0.3 % (0.0-0.8); Eosinophils # 0.4 10*3/uL (0.0-0.87); Eosinophils % 2.2 % (0.00-10.9); Hematocrit 20.2 VOL% (35.7-47.0); Immature Granulocytes Absolute 0.17 #; Lymphocytes % 17.1 % (21.3-54.2); Mean Corpuscular HGB Conc 30.7 GM/DL (32-36); Mean Corpuscular Hemoglobin 30 PG (27-34); Mean Corpuscular Volume 96.7 FL (87-102); Mean Platelet Volume 9.9 FL (9.6-12.0); Monocytes # 2.2 10*3/uL (0.11-0.8); Monocytes % 12.2 % (1.7-12.7); Neutrophils # 11.9 10*3/uL (1.4-7.4); Neutrophils % 67.2 % (38.7-73.9); Platelet Count 406 T/CUMM (130-400); Red Blood Count 2.09 MC/CUMM (3.8-5.5); Red Cell Distribution Width 14.5 % (9.3-17.3); White Blood Count 17.7 T/CUMM (4-12)
[2018-03-24 07:10] LABS: Hemoglobin 6.2 GM/DL (12.0-16.0)
[2018-03-24 07:24] LABS: Calcium 8.5 MG/DL (8.5-10.1); Osmolality,Calculated 281.5 MOS/KG (273-304); Potassium 4.8 MMOL/L (3.5-5.1)
[2018-03-24] MEDS: ATORVASTATIN 80 MG TABLET PO SCH (08:38)
[2018-03-24] MEDS: PANTOPRAZOLE 40 MG TABLET PO SCH (08:38)
[2018-03-24] MEDS: MAGNESIUM OXIDE 400 MG TABLET PO SCH (08:38)
[2018-03-24] MEDS: MORPHINE 4 MG/1 ML VIAL IV PRN (08:38)
[2018-03-24] MEDS: CARVEDILOL 6.25 MG TABLET PO SCH ×2 (08:38→16:59)
[2018-03-24] MEDS: GABAPENTIN 100 MG CAPSULE PO SCH ×3 (08:38→21:24)
[2018-03-24] MEDS: ASPIRIN EC 81 MG TABLET PO SCH (08:38)
[2018-03-24] MEDS: FERROUS SULFATE 325 MG TABLET PO SCH ×2 (08:38→21:25)
[2018-03-24] MEDS: INSULIN REGULAR 100 UNIT/ML SUBCUT SCH ×4 (08:39→21:24)
[2018-03-24] MEDS: amLODIPine 5 MG TABLET PO SCH (08:39)
[2018-03-24] MEDS ORDERED: SODIUM CHLORIDE 0.9% 1,000 ML IV PRN (08:42)
[2018-03-24] MEDS: VANCOMYCIN INJ 1,250 MG in SODIUM CHLORIDE 0.9% 250 ML IV SCH ×2 (11:15→23:03)
[2018-03-24] MEDS ORDERED: SODIUM POLYSTYRENE SULFATE 15 GM/60 ML BOTTLE PO STA (14:56)
[2018-03-24] MEDS: traMADol 50 MG TABLET PO PRN (17:50)
[2018-03-25] MEDS: PIPERACILLIN/TAZOBACTAM 3,375 MG in SODIUM CHLORIDE 0.9% 100 ML IV SCH ×3 (01:25→18:11)
[2018-03-25 04:11] LABS: Basophils # 0.1 10*3/uL (0.0-0.2); Basophils % 0.7 % (0.0-0.8); Eosinophils # 0.3 10*3/uL (0.0-0.87); Eosinophils % 2.2 % (0.00-10.9); Hematocrit 25.1 VOL% (35.7-47.0); Hemoglobin 8.3 GM/DL (12.0-16.0); Immature Granulocytes % 1.1 %; Immature Granulocytes Absolute 0.16 #; Lymphocytes # 1.9 10*3/uL (1.4-4.0); Lymphocytes % 13.3 % (21.3-54.2); Mean Corpuscular HGB Conc 33.1 GM/DL (32-36); Mean Corpuscular Hemoglobin 30 PG (27-34); Mean Platelet Volume 10.1 FL (9.6-12.0); Monocytes # 1.3 10*3/uL (0.11-0.8); Monocytes % 9.1 % (1.7-12.7); Neutrophils # 10.6 10*3/uL (1.4-7.4); Neutrophils % 73.6 % (38.7-73.9); Platelet Count 356 T/CUMM (130-400); Red Blood Count 2.79 MC/CUMM (3.8-5.5); Red Cell Distribution Width 16.3 % (9.3-17.3); White Blood Count 14.5 T/CUMM (4-12)
[2018-03-25 04:26] LABS: Calcium 8.2 MG/DL (8.5-10.1); Osmolality,Calculated 283.5 MOS/KG (273-304); Potassium 4.2 MMOL/L (3.5-5.1)
[2018-03-25] MEDS: ENOXAPARIN 40 MG/0.4 ML SYRINGE SUBCUT SCH (05:22)
[2018-03-25] MEDS: CARVEDILOL 6.25 MG TABLET PO SCH ×2 (08:24→17:15)
[2018-03-25] MEDS: ATORVASTATIN 80 MG TABLET PO SCH (08:24)
[2018-03-25] MEDS: PANTOPRAZOLE 40 MG TABLET PO SCH (08:24)
[2018-03-25] MEDS: ASPIRIN EC 81 MG TABLET PO SCH (08:24)
[2018-03-25] MEDS: MAGNESIUM OXIDE 400 MG TABLET PO SCH (08:24)
[2018-03-25] MEDS: FERROUS SULFATE 325 MG TABLET PO SCH ×2 (08:24→21:26)
[2018-03-25] MEDS: GABAPENTIN 100 MG CAPSULE PO SCH ×3 (08:24→21:26)
[2018-03-25] MEDS: INSULIN REGULAR 100 UNIT/ML SUBCUT SCH ×4 (08:24→21:25)
[2018-03-25] MEDS: amLODIPine 5 MG TABLET PO SCH ×2 (08:29→10:20)
[2018-03-25] MEDS ORDERED: amLODIPine 10 MG TABLET PO SCH (09:06)
[2018-03-25] MEDS: MORPHINE 4 MG/1 ML VIAL IV PRN ×2 (10:03→21:25)
[2018-03-25] MEDS: VANCOMYCIN INJ 1,250 MG in SODIUM CHLORIDE 0.9% 250 ML IV SCH (14:30)
[2018-03-26] MEDS: PIPERACILLIN/TAZOBACTAM 3,375 MG in SODIUM CHLORIDE 0.9% 100 ML IV SCH ×3 (01:25→18:45)
[2018-03-26] MEDS: ENOXAPARIN 40 MG/0.4 ML SYRINGE SUBCUT SCH (05:25)
[2018-03-26] MEDS: INSULIN REGULAR 100 UNIT/ML SUBCUT SCH ×4 (08:33→21:19)
[2018-03-26] MEDS: ATORVASTATIN 80 MG TABLET PO SCH (10:05)
[2018-03-26] MEDS: GABAPENTIN 100 MG CAPSULE PO SCH ×3 (10:05→21:19)
[2018-03-26] MEDS: FERROUS SULFATE 325 MG TABLET PO SCH ×2 (10:06→21:19)
[2018-03-26] MEDS: CARVEDILOL 6.25 MG TABLET PO SCH ×2 (10:06→16:35)
[2018-03-26] MEDS: MAGNESIUM OXIDE 400 MG TABLET PO SCH (10:06)
[2018-03-26] MEDS: ASPIRIN EC 81 MG TABLET PO SCH (10:06)
[2018-03-26] MEDS: amLODIPine 5 MG TABLET PO SCH (10:06)
[2018-03-26] MEDS: MORPHINE 4 MG/1 ML VIAL IV PRN (10:07)
[2018-03-26] MEDS: VANCOMYCIN INJ 1,250 MG in SODIUM CHLORIDE 0.9% 250 ML IV SCH ×2 (10:07→22:45)
[2018-03-26] MEDS: PANTOPRAZOLE 40 MG TABLET PO SCH (10:17)
[2018-03-26] MEDS: BISACODYL 5 MG TABLET PO SCH (21:19)
[2018-03-26] MEDS: traMADol 50 MG TABLET PO PRN (21:55)
[2018-03-27] MEDS: PIPERACILLIN/TAZOBACTAM 3,375 MG in SODIUM CHLORIDE 0.9% 100 ML IV SCH ×2 (01:17→09:49)
[2018-03-27] MEDS: ENOXAPARIN 40 MG/0.4 ML SYRINGE SUBCUT SCH (05:25)
[2018-03-27 07:35] LABS: Basophils # 0.1 10*3/uL (0.0-0.2); Basophils % 0.8 % (0.0-0.8); Eosinophils # 0.4 10*3/uL (0.0-0.87); Eosinophils % 2.8 % (0.00-10.9); Hemoglobin 7.9 GM/DL (12.0-16.0); Immature Granulocytes % 0.8 %; Lymphocytes # 2.3 10*3/uL (1.4-4.0); Lymphocytes % 18.1 % (21.3-54.2); Mean Corpuscular HGB Conc 31.6 GM/DL (32-36); Mean Corpuscular Hemoglobin 30 PG (27-34); Mean Platelet Volume 10.2 FL (9.6-12.0); Monocytes # 1.3 10*3/uL (0.11-0.8); Monocytes % 10.1 % (1.7-12.7); Neutrophils # 8.7 10*3/uL (1.4-7.4); Neutrophils % 67.4 % (38.7-73.9); Platelet Count 367 T/CUMM (130-400); Red Blood Count 2.66 MC/CUMM (3.8-5.5); Red Cell Distribution Width 15.9 % (9.3-17.3); White Blood Count 12.9 T/CUMM (4-12)
[2018-03-27 07:57] LABS: Calcium 8.4 MG/DL (8.5-10.1); Osmolality,Calculated 284.4 MOS/KG (273-304); Potassium 4.3 MMOL/L (3.5-5.1)
[2018-03-27] MEDS: INSULIN REGULAR 100 UNIT/ML SUBCUT SCH ×4 (08:22→20:55)
[2018-03-27] MEDS: ASPIRIN EC 81 MG TABLET PO SCH (08:23)
[2018-03-27] MEDS: CARVEDILOL 6.25 MG TABLET PO SCH ×2 (08:23→16:53)
[2018-03-27] MEDS: BISACODYL 5 MG TABLET PO SCH (08:24)
[2018-03-27] MEDS: ATORVASTATIN 80 MG TABLET PO SCH (08:24)
[2018-03-27] MEDS: FERROUS SULFATE 325 MG TABLET PO SCH ×2 (08:24→20:54)
[2018-03-27] MEDS: MAGNESIUM OXIDE 400 MG TABLET PO SCH (08:25)
[2018-03-27] MEDS: amLODIPine 5 MG TABLET PO SCH (08:25)
[2018-03-27] MEDS: GABAPENTIN 100 MG CAPSULE PO SCH ×3 (08:25→20:55)
[2018-03-27] MEDS: PANTOPRAZOLE 40 MG TABLET PO SCH (08:26)
[2018-03-27] MEDS: VANCOMYCIN INJ 1,250 MG in SODIUM CHLORIDE 0.9% 250 ML IV SCH (08:26)
[2018-03-27] MEDS: CIPROFLOXACIN 500 MG TABLET PO SCH (17:31)
[2018-03-28 05:47] LABS: Basophils # 0.1 10*3/uL (0.0-0.2); Basophils % 0.5 % (0.0-0.8); Eosinophils # 0.4 10*3/uL (0.0-0.87); Hematocrit 24.1 VOL% (35.7-47.0); Hemoglobin 7.7 GM/DL (12.0-16.0); Immature Granulocytes % 0.8 %; Lymphocytes # 2.3 10*3/uL (1.4-4.0); Lymphocytes % 19.3 % (21.3-54.2); Mean Corpuscular Hemoglobin 30 PG (27-34); Mean Corpuscular Volume 93.1 FL (87-102); Mean Platelet Volume 10.3 FL (9.6-12.0); Monocytes # 1.2 10*3/uL (0.11-0.8); Monocytes % 10.5 % (1.7-12.7); Neutrophils # 7.8 10*3/uL (1.4-7.4); Neutrophils % 65.9 % (38.7-73.9); Platelet Count 351 T/CUMM (130-400); Red Blood Count 2.59 MC/CUMM (3.8-5.5); Red Cell Distribution Width 15.7 % (9.3-17.3); White Blood Count 11.8 T/CUMM (4-12)
[2018-03-28] MEDS: ENOXAPARIN 40 MG/0.4 ML SYRINGE SUBCUT SCH (05:56)
[2018-03-28 06:22] LABS: Calcium 8.5 MG/DL (8.5-10.1); Osmolality,Calculated 293.1 MOS/KG (273-304); Potassium 4.3 MMOL/L (3.5-5.1)
[2018-03-28] MEDS: INSULIN REGULAR 100 UNIT/ML SUBCUT SCH ×4 (08:07→21:19)
[2018-03-28] MEDS: CARVEDILOL 6.25 MG TABLET PO SCH ×2 (09:19→16:40)
[2018-03-28] MEDS: BISACODYL 5 MG TABLET PO SCH (09:19)
[2018-03-28] MEDS: amLODIPine 5 MG TABLET PO SCH (09:20)
[2018-03-28] MEDS: ASPIRIN EC 81 MG TABLET PO SCH (09:20)
[2018-03-28] MEDS: FERROUS SULFATE 325 MG TABLET PO SCH ×2 (09:20→21:19)
[2018-03-28] MEDS: PANTOPRAZOLE 40 MG TABLET PO SCH (09:20)
[2018-03-28] MEDS: ATORVASTATIN 80 MG TABLET PO SCH (09:20)
[2018-03-28] MEDS: MAGNESIUM OXIDE 400 MG TABLET PO SCH (09:20)
[2018-03-28] MEDS: GABAPENTIN 100 MG CAPSULE PO SCH ×3 (09:20→21:18)
[2018-03-28] MEDS: CIPROFLOXACIN 500 MG TABLET PO SCH (11:43)
[2018-03-29] MEDS: CIPROFLOXACIN 500 MG TABLET PO SCH ×2 (06:07→23:49)
[2018-03-29] MEDS: ENOXAPARIN 40 MG/0.4 ML SYRINGE SUBCUT SCH (06:07)
[2018-03-29 06:23] LABS: Calcium 8.6 MG/DL (8.5-10.1); Osmolality,Calculated 293.1 MOS/KG (273-304); Potassium 4.4 MMOL/L (3.5-5.1)
[2018-03-29] MEDS: INSULIN REGULAR 100 UNIT/ML SUBCUT SCH ×4 (07:45→20:01)
[2018-03-29] MEDS: ACETAMINOPHEN 325 MG TABLET PO PRN (09:41)
[2018-03-29] MEDS: amLODIPine 5 MG TABLET PO SCH (09:42)
[2018-03-29] MEDS: MAGNESIUM OXIDE 400 MG TABLET PO SCH (09:42)
[2018-03-29] MEDS: BISACODYL 5 MG TABLET PO SCH (09:42)
[2018-03-29] MEDS: ATORVASTATIN 80 MG TABLET PO SCH (09:42)
[2018-03-29] MEDS: ASPIRIN EC 81 MG TABLET PO SCH (09:42)
[2018-03-29] MEDS: FERROUS SULFATE 325 MG TABLET PO SCH ×2 (09:42→20:01)
[2018-03-29] MEDS: PANTOPRAZOLE 40 MG TABLET PO SCH (09:43)
[2018-03-29] MEDS: GABAPENTIN 100 MG CAPSULE PO SCH ×3 (09:43→20:02)
[2018-03-29] MEDS: CARVEDILOL 6.25 MG TABLET PO SCH ×2 (09:43→17:45)
[2018-03-30] MEDS: ENOXAPARIN 30 MG/0.3 ML SYRINGE SUBCUT SCH (05:57)
[2018-03-30] MEDS: INSULIN REGULAR 100 UNIT/ML SUBCUT SCH ×4 (08:10→20:58)
[2018-03-30] MEDS: GABAPENTIN 100 MG CAPSULE PO SCH ×3 (08:10→20:57)
[2018-03-30] MEDS: PANTOPRAZOLE 40 MG TABLET PO SCH (08:11)
[2018-03-30] MEDS: MAGNESIUM OXIDE 400 MG TABLET PO SCH ×2 (08:11→09:13)
[2018-03-30] MEDS: CARVEDILOL 6.25 MG TABLET PO SCH ×2 (08:11→17:19)
[2018-03-30] MEDS: ASPIRIN EC 81 MG TABLET PO SCH (08:11)
[2018-03-30] MEDS: FERROUS SULFATE 325 MG TABLET PO SCH ×2 (08:11→20:58)
[2018-03-30] MEDS: ATORVASTATIN 80 MG TABLET PO SCH (08:11)
[2018-03-30] MEDS: amLODIPine 5 MG TABLET PO SCH (08:11)
[2018-03-30] MEDS: BISACODYL 5 MG TABLET PO SCH (08:11)
[2018-03-30 08:36] LABS: Calcium 8.7 MG/DL (8.5-10.1); Osmolality,Calculated 294.4 MOS/KG (273-304); Potassium 4.3 MMOL/L (3.5-5.1)
[2018-03-30] MEDS: CIPROFLOXACIN 500 MG TABLET PO SCH (18:02)
[2018-03-31 06:01] LABS: Calcium 8.4 MG/DL (8.5-10.1); Osmolality,Calculated 292.3 MOS/KG (273-304); Potassium 4.5 MMOL/L (3.5-5.1)
[2018-03-31] MEDS: ENOXAPARIN 30 MG/0.3 ML SYRINGE SUBCUT SCH (06:03)
[2018-03-31] MEDS ORDERED: glipiZIDE 10 MG TABLET PO SCH (07:30)
[2018-03-31] MEDS: ATORVASTATIN 80 MG TABLET PO SCH (09:46)
[2018-03-31] MEDS: ASPIRIN EC 81 MG TABLET PO SCH (09:46)
[2018-03-31] MEDS: CARVEDILOL 6.25 MG TABLET PO SCH (09:46)
[2018-03-31] MEDS: FERROUS SULFATE 325 MG TABLET PO SCH (09:46)
[2018-03-31] MEDS: BISACODYL 5 MG TABLET PO SCH (09:46)
[2018-03-31] MEDS: amLODIPine 5 MG TABLET PO SCH (09:47)
[2018-03-31] MEDS: MAGNESIUM OXIDE 400 MG TABLET PO SCH (09:47)
[2018-03-31] MEDS: GABAPENTIN 100 MG CAPSULE PO SCH (09:47)
[2018-03-31] MEDS: INSULIN REGULAR 100 UNIT/ML SUBCUT SCH ×2 (09:47→11:42)
[2018-03-31] MEDS: PANTOPRAZOLE 40 MG TABLET PO SCH (09:47)
[2018-03-31 11:15] VITALS: BP 156/74
[2018-03-31] MEDS: CIPROFLOXACIN 500 MG TABLET PO SCH (11:43)
[2018-03-31] MEDS ORDERED: SODIUM PHOSPHATE ENEMA 133 ML BOTTLE RECTAL PRN (12:37)
[2018-03-31] MEDS ORDERED: BISACODYL 10 MG SUPP RECTAL ONE (12:37)
== END 2018-03-31 14:55 | DRG 464 ==
LOC: EDBD → EDUNIT# → N.ED 10:25 → N.EDINP 11:35 → N.3E 12:50
PROVIDERS: ADMIT Surgery; ATTEND Surgery